=== PATIENT | female | born 1985 | race Two or more races ===

== ENCOUNTER → 2020-07-12 | Emergency (ER) | payer MEDICAID, OTHER ==
[~2020-07-12] VITALS: Ht 165.1 cm; Wt 99.8 kg
[~2020-07-12] MED LIST: SODIUM CHLORIDE 0.9% 1,000 ML IV ONE
[2020-07-12 11:22] LABS: Basophils # (auto) 0 10 ^3/uL (0-0.2); Basophils % (auto) 0.3 % (0.0-2.0); Eosinophils # (auto) 0 10 ^3/uL (0-0.8); Eosinophils % (auto) 0.3 % (0.0-7.0); Hematocrit 39.9 % (36.0-46.0); Lymphocytes # (auto) 1.1 10 ^3/uL (0.4-5.4); Lymphocytes % (auto) 10.2 % (10.0-50.0); Mean Corpuscular Hemoglobin 28.9 pg (28.0-32.0); Mean Corpuscular Hgb Conc. 32.6 g/dL (32.0-36.0); Mean Corpuscular Volume 88.6 fL (80.0-100.0); Monocytes % (auto) 8.9 % (0.0-12.0); Neutrophils # (auto) 8.9 10 ^3/uL (1.6-8.6); Neutrophils % (auto) 80.3 % (37.0-80.0); Platelet Count (auto) 277 10^3/uL (140-450); Red Cell Distribution Width 13.5 % (11.8-14.3)
[2020-07-12 12:22] LABS: Albumin 2.7 g/dL (3.4-5.0); Calcium 9.5 mg/dL (8.5-10.1)
[2020-07-12 12:27] LABS: Bilirubin, Total 1.4 mg/dL (0.2-1.0); Total Protein 7.8 g/dL (6.4-8.2)
[2020-07-12 15:01] VITALS: BP 91/55
== END | disposition home or self-care (01) ==
LOC: ER 10:05
DX: O26.893 Other specified pregnancy related conditions, third trimester (principal); R22.0 Localized swelling, mass and lump, head; Z3A.37 37 weeks gestation of pregnancy
CPT/HCPCS: 36415; 80053; 83605; 85025; 87040; 96360; 96361; 99285; J7030